=== PATIENT | female | born 1990 | race Caucasian/White ===

== ENCOUNTER 2020-07-18 07:24 | Outpatient (REF) | payer OTHER, SELFPAY ==
[2020-07-18 07:51] LABS: COVID-19 Test Negative (Negative)
== END 2020-07-18 07:25 | disposition home or self-care (01) ==
LOC: HO.EMPCOV 07:24
PROVIDERS: PCP Internal Medicine; Visit Provider Internal Medicine
DX: Z20.828 Contact with and (suspected) exposure to other viral communicable diseases (principal)
CPT/HCPCS: 87635; C9803

== ENCOUNTER 2021-03-04 06:12 | Outpatient (REF) | payer OTHER, SELFPAY ==
[2021-03-04 07:11] LABS: Influenza A PCR NEGATIVE (Negative); Influenza B PCR NEGATIVE (Negative); Resp Syncy Virus RNA Qual PCR NEGATIVE (Negative); SARS COV2 PCR INHOUSE NEGATIVE (Negative)
== END 2021-03-04 06:13 | disposition home or self-care (01) ==
LOC: HO.EMPCOV 06:12
PROVIDERS: Visit Provider Internal Medicine
DX: Z20.822 Contact with and (suspected) exposure to COVID-19 (principal)
CPT/HCPCS: 0241U; 36415